=== PATIENT | male | born 1960 | race Caucasian/White ===

== ENCOUNTER → 2016-12-17 | Day surgery (SDC) | payer BC ==
[2012-10-24 15:18] VITALS: BP 125/91
[~2016-12-17] MED LIST: CEPHALEXIN500 M1 PO; CLONAZEPAM0.125 MG PO; EFFEXOR XR150 M1 PO; EFFEXOR XR75 MG PO; KLONOPIN 0.5MG0.5 MG PO; LISINOPRIL/HCTZ1 TA1 PO
== END ==
LOC: MSO 07:23
DX: Z12.11 Encounter for screening for malignant neoplasm of colon (principal); K57.30 Diverticulosis of large intestine without perforation or abscess without bleeding; I10 Essential (primary) hypertension; I38 Endocarditis, valve unspecified; G47.33 Obstructive sleep apnea (adult) (pediatric); E11.8 Type 2 diabetes mellitus with unspecified complications; Z79.84 Long term (current) use of oral hypoglycemic drugs; N19 Unspecified kidney failure; E07.9 Disorder of thyroid, unspecified
CPT/HCPCS: 00810; J7030

== ENCOUNTER 2024-06-16 14:45 | Emergency (ER) | payer BC ==
[~2024-06-16] VITALS: Ht 167.6 cm; Wt 118.2 kg
[2024-06-16 15:16] LABS: BASO # 0.05 K/mm3 (0.02-0.10); EOS # 0.51 K/mm3 (0.04-0.40); EOS % 4.9 % (0.0-4.0); LYMPH# 1.75 K/mm3 (1.50-4.00); MEAN CELL VOLUME 90 fl (78-100); MEAN CORPUSCULAR HEMOGLOBIN 29 pg (27-31); MEAN CORPUSCULAR HGB CONC 33 g/dL (33-37); MEAN PLATELET VOLUME 8.6 fl (7.4-10.4); MONO # 0.89 K/mm3 (0.20-0.80); NEU # 7.06 K/mm3 (1.40-6.50); PLATELET COUNT 409 K/mm3 (130-400); RED BLOOD COUNT 4.47 M/mm3 (4.20-5.60); RED CELL DISTRIBUTION WIDTH 12.6 % (11.5-14.5); WHITE BLOOD COUNT 10.3 K/mm3 (4.8-10.8)
[2024-06-16 15:23] LABS: ALBUMIN 4.2 g/dL (3.4-4.8)
[2024-06-16 15:24] LABS: CALCIUM 9.4 mg/dL (8.3-10.5)
[2024-06-16 15:25] LABS: TOTAL PROTEIN 6.8 g/dL (6.2-8.1)
[2024-06-16 15:27] LABS: TOTAL BILIRUBIN 0.4 mg/dL (0.2-1.2)
[2024-06-16 15:28] LABS: PROTHROMBIN TIME 10.6 SECONDS (9.0-12.0)
[2024-06-16 16:01] VITALS: BP 166/87
== END 2024-06-16 16:02 | disposition home or self-care (01) ==
LOC: ED 14:45
PROVIDERS: Physician Assistant
DX: S80.11XA Contusion of right lower leg, initial encounter (principal); W17.89XA Other fall from one level to another, initial encounter
CPT/HCPCS: J1650